=== PATIENT | female | born 1965 | race Caucasian/White ===

== ENCOUNTER 2019-01-02 18:13 | Emergency (ER) | payer OTHER, MEDICAID, SELFPAY ==
[2019-01-02 18:28] VITALS: BP 148/83; PULSE 113; RESP 14; TEMP 37; O2SAT 99
--- NOTE | 2019-01-02 20:56 | PC.NURSE ---
Pt states feels like there are bugs under her skin, states she has used peroxide topically to flush them out of her skin, but feels like now they are used to it. Nothing seen visually to skin. No rash, wounds or openings.
[2019-01-02 22:19] VITALS: BP 114/71; PULSE 102; RESP 18; O2SAT 98
--- NOTE | 2019-01-03 06:31 | ED.SKABFB ---
HPI - Skin/Abscess/Foreign Bdy General Chief complaint: Skin/Abscess/Foreign Body Stated complaint: SOMETHING INSIDE SKIN Time Seen by Provider: 01/02/19 19:33 Source: patient Mode of arrival: ambulatory Limitations: no limitations History of Present Illness HPI narrative: 53-year-old female, occasional smoker and otherwise healthy presents with a chief complaint of concern for parasite infection in her skin. She states she had an abnormal lesion on her abdomen after working in the garden over the summer and after taking a shower that lesion had moved so she fingers it went under her skin. Since then she has had multiple episodes of various portions of her skin becoming red, itchy or painful. She has read multiple articles on the Internet which suggests this could be a parasitic infection and presents to the emergency department requesting an MRI for evaluation. MD complaint: rash and insect bite/sting Onset (ago): month(s) Tetanus up to date: yes Location: generalized Quality: aching and pruritic Relieving factors: none Exacerbating factors: none Context: none Treatments prior to arrival: none Related Data Previous Rx's Medication Instructions Recorded doxycycline hyclate 100 mg PO BID #20 tab 01/02/19 Review of Systems Constitutional Denies chills, Denies fever(s), Denies lethargy and Denies weakness Eyes Denies change in vision, Denies eye discharge, Denies irritation and Denies loss of vision ENT Ears, Nose, Mouth, and Throat: Denies change in voice, Denies neck pain and Denies sore throat Cardiovascular Denies chest pain, Denies irregular heart rhythm, Denies lightheadedness, Denies palpitations, Denies dyspnea, Denies dyspnea on exertion and Denies orthopnea Respiratory Denies cough, Denies dyspnea, Denies dyspnea on exertion and Denies wheezing Gastrointestinal Gastrointestinal: Denies abdominal pain, Denies change in bowel habits, Denies diarrhea, Denies nausea and Denies vomiting Genitourinary Denies hematuria, Denies flank pain, Denies urinary incontinence and Denies urinary urgency Musculoskeletal Denies neck pain Integumentary/Breasts Reports pruritus, Reports erythema, Denies rash and Denies wounds Neurologic Denies confusion, Denies loss of vision and Denies weakness Psychiatric Denies anxiety, Denies confusion, Denies depression, Denies homicidal ideation and Denies suicidal ideation Endocrine Denies palpitations Hematologic/Lymphatic Denies easy bruising Allergic/Immunologic Denies wheezing PFSH Social History Smoking Status: Current every day smoker Social History Smoking Status: Current every day smoker Exam Narrative Exam Narrative: GEN: 53-year-old female, anxious with pressured speech, fidgeting, a bit disheveled EYES: Pupils are equal, round, and reactive to light and accommodation. Extraoccular muscles are intact bilaterally. There is no subconjunctival hemorrhage or exudate. CHEST: Lungs are clear to auscultation bilaterally and free of wheezes, rales, or rhonchi. Heart rate is regular rhythm, there are no murmurs, clicks, rubs, or gallops. There is no chest wall tenderness. ABD: Abdomen is soft and nontender. There is no guarding or rebound. Bowel sounds are normal in all 4 quadrants. There is no mass or organomegaly. EXT: Full painless ROM of all extremities with no loss of sensation or strength. SKIN: Small area of erythema medial aspect of right wrist, roughly quarter size, patient states it is moving and she is convinced this is a parasite. There is no evidence of motion Initial Vital Signs Initial Vital Signs: Vital Signs Temperature 98.6 F 01/02/19 18:28 Pulse Rate 113 H 01/02/19 18:28 Respiratory Rate 14 01/02/19 18:28 Blood Pressure 148/83 H 01/02/19 18:28 Pulse Oximetry 99 01/02/19 18:28 MDM - Skin/Abscess/Foreign Bdy Lab Data Urine Dip Bedside Urine Glucose Negative Bedside Urine Bilirubin - Negative Bedside Urine Ketone - Negative Urine Specific [place] 1.030 Bedside Urine Occult Blood - Negative Bedside Urine pH 6.0 Bedside Urine Protein - Negative Bedside Urine Urobilinogen - Negative Bedside Urine Nitrite - Negative Bedside Urine Leukocytes - Negative Esterase Discharge Plan Departure Patient Disposition: Home Clinical Impression: Skin infection Discharge Date/Time: 01/02/19 22:36 Interventions: ED Discharge Assessment Last Done: 01/02/19 22:31 Instructions: DI for Cellulitis -- Adult Activity Restrictions/Additional Instructions: *You have been diagnosed with [ atypical skin infection, cellulitis versus other ] *What to do: *Take medications as directed *Follow up with your primary care provider in 2-3 days, call for an appointment. Let them know you were seen in the Emergency Department and that we ask that you be seen in follow up *Return to ER if you should have any new, worsening or concerning symptoms Prescriptions: New doxycycline hyclate 100 mg tablet 100 mg PO BID Qty: 20 RF: 0 Referrals: Merrill Velásquez MD [Physician] - Little Sabillon MD [Physician] -
== END 2019-01-02 22:36 | disposition home or self-care (01) ==
PROVIDERS: Emergency Provider Emergency Medicine
DX: L08.9 Local infection of the skin and subcutaneous tissue, unspecified (principal)
CPT/HCPCS: 81003; 99282; 99283